=== PATIENT | male | born 1935 | race Caucasian/White ===

== ENCOUNTER → 2016-12-24 | Outpatient (CLI) | payer MEDICARE, BC ==
[~2016-12-24] MED LIST: ALLOPURINOL100 MG PO; ASPIR 8181 MG PO; AUGMENTIN 875875 MG PO; BUMETANIDE1 MG PO; CELEBREX100 MG PO; CLARITIN10 MG PO; COLACE100 MG PO; COMBIVENT1 ARO IH; COUMADIN5 M2 PO; COUMADIN7.5 M1 PO; ENALAPRIL PO; FAMOTIDINE40 MG PO; FUROSEMIDE40 MG PO; GLYBURIDE5 MG PO; HCTZ PO; INDOCIN25 MG PO; INDOCIN50 MG PO; INDOMETHACIN25 MG PO; JANUVIA100 MG PO; KLOR-CON 1010 ME1 PO; LASIX40 MG PO; LEVAQUIN750 M1 PO; LIPITOR40 MG PO; LISINOPRIL40 MG PO; LISINOPRIL5 MG PO; LOPRESSOR100 MG PO; MAG-OX 400400 MG PO; METFORMIN HCL1000 MG PO; METFORMIN500 MG PO; METOPROLOL25 MG PO; MITIGARE0.6 MG PO; NEXIUM40 MG/PACK PO; POTASSIUM CHLO10 ME1 PO; TOPROL XL25 MG PO; VICODIN 5/500 505 MG PO; WARFARIN SOD5 MG PO; XANAX0.25 MG PO; XANAX0.5 MG PO
== END | disposition home or self-care (01) ==
LOC: RAD 12:01
DX: J98.4 Other disorders of lung (principal); I10 Essential (primary) hypertension; E11.9 Type 2 diabetes mellitus without complications; Z95.1 Presence of aortocoronary bypass graft

== ENCOUNTER 2018-02-08 02:47 | Emergency (ER) | payer MEDICARE, BC ==
[~2018-02-08] VITALS: Wt 113.4 kg
[2018-02-08 03:41] LABS: HEMATOCRIT 42.9 % (42.0-52.0); HEMOGLOBIN 13.5 g/dl (14.0-18.0); MEAN CELL VOLUME 104.1 fl (80.0-94.0); MEAN CORPUSCULAR HGB 32.8 pg (27.0-31.0); MEAN CORPUSCULAR HGB CONC 31.5 g/dl (33.0-37.0); MEAN PLATELET VOLUME 12.3 fl (9.6-12.3); PLATELET COUNT AUTOMATED 174 10*3/uL (130-400); RED BLOOD COUNT 4.12 10*6/uL (4.50-5.90); RED CELL DISTRI WIDTH 15.2 % (0-14.5); WHITE BLOOD COUNT 22.4 10*3/uL (4.8-10.8)
[2018-02-08 04:00] VITALS: BP 67/44
[2018-02-08 04:00] LABS: INTERNATIONAL NORM RATIO 3.3 (2.0-3.5)
[2018-02-08 04:04] LABS: BASOPHILS 1 % (0-1); TOTAL CELLS COUNTED 100 #CELLS
[2018-02-08 04:05] LABS: PLATELET SUFFICIENCY NORMAL (NORMAL); POLYCHROMASIA SLIGHT
[2018-02-08 04:14] LABS: ALBUMIN 3.3 gm/dl (3.1-4.5); CREATININE 1.69 mg/dL (0.70-1.30); POTASSIUM 4.7 mmol/L (3.5-5.1); TOTAL PROTEIN 8.1 gm/dL (6.4-8.2)
[2018-02-08 04:22] LABS: TROPONIN I 0.017 ng/ml (<0.045)
== END 2018-02-08 06:35 | disposition short-term general hospital (02) ==
LOC: ED 02:47
PROVIDERS: Emergency Medicine
DX: K92.2 Gastrointestinal hemorrhage, unspecified (principal); J81.0 Acute pulmonary edema; J96.90 Respiratory failure, unspecified, unspecified whether with hypoxia or hypercapnia; I25.10 Atherosclerotic heart disease of native coronary artery without angina pectoris; M19.90 Unspecified osteoarthritis, unspecified site; M10.9 Gout, unspecified; I11.0 Hypertensive heart disease with heart failure; I50.9 Heart failure, unspecified; K21.9 Gastro-esophageal reflux disease without esophagitis; I48.0 Paroxysmal atrial fibrillation; Z79.02 Long term (current) use of antithrombotics/antiplatelets; Z86.718 Personal history of other venous thrombosis and embolism; Z79.899 Other long term (current) drug therapy; Z79.82 Long term (current) use of aspirin

== ENCOUNTER → 2021-05-23 | Outpatient (CLI) | payer MEDICARE, BC | END | disposition home or self-care (01) | LOC: LAB 13:09 | PROVIDERS: ATTEND Internal Medicine Hematology & Oncology | DX: N18.4 Chronic kidney disease, stage 4 (severe) (principal) ==

== ENCOUNTER → 2021-07-29 | Outpatient (CLI) | payer MEDICARE, BC ==
[2021-07-28 13:24] LABS: HEMATOCRIT 26.7 % (42.0-52.0); MEAN CORPUSCULAR HGB 29.3 pg (27.0-31.0); MEAN CORPUSCULAR HGB CONC 31.5 g/dl (33.0-37.0); MEAN PLATELET VOLUME 12.3 fl (9.6-12.3); PLATELET COUNT AUTOMATED 269 10*3/uL (130-400); RED BLOOD COUNT 2.87 10*6/uL (4.50-5.90); RED CELL DISTRI WIDTH 16.4 % (0-14.5); WHITE BLOOD COUNT 8.6 10*3/uL (4.8-10.8)
[2021-07-28 13:40] LABS: ACANTHOCYTES FEW; BURR CELLS FEW; OVALOCYTES FEW; PLATELET SUFFICIENCY NORMAL (NORMAL); SCHISTOCYTES FEW; TOTAL CELLS COUNTED 100 #CELLS
[2021-07-28 13:41] LABS: POLYCHROMASIA SLIGHT
[~2021-07-29] MED LIST changes: +ACETAMINOPHEN650 M5 PO; +ACYCLOVIR400 MG PO; +ARANESP40 MCG/1 M SQ; +BUMETANIDE0.5 MG PO; +CHOLESTYRAMINE P4 GM PO; +ELIQUIS2.5 M1 PO; +HEMADY20 MG PO; +IMODIUM A-D2 M2 PO; +JANUVIA50 MG PO; +LOMOTIL 2.5-0.1 EACH PO; +MELATONIN3 MG PO; +METOPROLOL SUCC25 M2 PO; +NATURE'S BLEND F1 MG PO; +ONDANSETRON HYDR8 MG PO; +SILVADENE,SSD C50 GM T; +VITAMIN D31250 MC1 PO
== END | disposition home or self-care (01) ==
LOC: TRNFUSION 02:55
PROVIDERS: ATTEND Internal Medicine
DX: D64.9 Anemia, unspecified (principal)

== ENCOUNTER 2021-08-11 14:30 | Inpatient (IN) | payer MEDICARE, BC ==
[2021-08-11] VITALS (11 sets, daily range): BP systolic 86–127; BP diastolic 24–105
[~2021-08-11] VITALS: Ht 182.9 cm; Wt 69.1 kg
[2021-08-11 15:24] LABS: HEMATOCRIT 26.7 % (42.0-52.0); MEAN CORPUSCULAR HGB 29.5 pg (27.0-31.0); MEAN CORPUSCULAR HGB CONC 30.7 g/dl (33.0-37.0); MEAN PLATELET VOLUME 11.9 fl (9.6-12.3); PLATELET COUNT AUTOMATED 281 10*3/uL (130-400); RED BLOOD COUNT 2.78 10*6/uL (4.50-5.90); RED CELL DISTRI WIDTH 17.7 % (0-14.5); WHITE BLOOD COUNT 12.7 10*3/uL (4.8-10.8)
[2021-08-11 15:45] LABS: INTERNATIONAL NORM RATIO 1.8 (2.0-3.5)
[2021-08-11 15:47] LABS: ALBUMIN 1.2 gm/dl (3.1-4.5); CREATININE 2.94 mg/dL (0.70-1.30); POTASSIUM 4.1 mmol/L (3.5-5.1); TOTAL PROTEIN 5.7 gm/dL (6.4-8.2)
[2021-08-11 15:48] LABS: BURR CELLS MODERATE; SCHISTOCYTES FEW; TOTAL CELLS COUNTED 100 #CELLS
[2021-08-11 15:49] LABS: ACANTHOCYTES FEW
[2021-08-11 15:50] LABS: MICROCYTOSIS MODERATE; OVALOCYTES FEW; PLATELET SUFFICIENCY NORMAL (NORMAL); POLYCHROMASIA SLIGHT
[2021-08-12 00:14] VITALS: BP 97/50
[2021-08-12 02:05] VITALS: BP 92/68
[2021-08-12 06:19] LABS: MEAN CELL VOLUME 93.9 fl (80.0-94.0); MEAN CORPUSCULAR HGB 29.2 pg (27.0-31.0); MEAN CORPUSCULAR HGB CONC 31.2 g/dl (33.0-37.0); PLATELET COUNT AUTOMATED 222 10*3/uL (130-400); RED BLOOD COUNT 2.77 10*6/uL (4.50-5.90); RED CELL DISTRI WIDTH 17.5 % (0-14.5); WHITE BLOOD COUNT 12.8 10*3/uL (4.8-10.8)
[2021-08-12 06:42] LABS: ALBUMIN 1.2 gm/dl (3.1-4.5); CREATININE 2.83 mg/dL (0.70-1.30); POTASSIUM 4.1 mmol/L (3.5-5.1)
[2021-08-12 06:44] LABS: TOTAL PROTEIN 5.7 gm/dL (6.4-8.2)
[2021-08-12 07:47] LABS: TOTAL CELLS COUNTED 100 #CELLS
[2021-08-12 07:48] LABS: BURR CELLS MODERATE; PLATELET SUFFICIENCY NORMAL (NORMAL); POLYCHROMASIA SLIGHT; SCHISTOCYTES FEW; VACUOLATION OF NEUTROPHILS SLIGHT
[2021-08-12 08:00] VITALS: BP 98/60
[2021-08-12 10:09] VITALS: BP 92/54
[2021-08-12 12:00] VITALS: BP 93/58
[2021-08-12 16:00] VITALS: BP 90/69
[2021-08-13] VITALS (15 sets, daily range): BP systolic 62–144; BP diastolic 34–87
[2021-08-13 06:26] LABS: HEMATOCRIT 24.5 % (42.0-52.0); MEAN CELL VOLUME 93.9 fl (80.0-94.0); MEAN CORPUSCULAR HGB 29.5 pg (27.0-31.0); MEAN CORPUSCULAR HGB CONC 31.4 g/dl (33.0-37.0); PLATELET COUNT AUTOMATED 264 10*3/uL (130-400); RED BLOOD COUNT 2.61 10*6/uL (4.50-5.90); RED CELL DISTRI WIDTH 17.7 % (0-14.5); WHITE BLOOD COUNT 18.6 10*3/uL (4.8-10.8)
[2021-08-13 07:11] LABS: ALBUMIN 1.2 gm/dl (3.1-4.5); POTASSIUM 4.5 mmol/L (3.5-5.1)
[2021-08-13 07:16] LABS: CREATININE 3.33 mg/dL (0.70-1.30); TOTAL PROTEIN 5.5 gm/dL (6.4-8.2)
[2021-08-13 08:16] LABS: TOTAL CELLS COUNTED 100 #CELLS
[2021-08-13 08:17] LABS: BURR CELLS MODERATE; OVALOCYTES FEW; PLATELET SUFFICIENCY NORMAL (NORMAL); POLYCHROMASIA SLIGHT; SCHISTOCYTES FEW; TOXIC GRANULATION SLIGHT; VACUOLATION OF NEUTROPHILS SLIGHT
[2021-08-14] VITALS: BP 188/58
[2021-08-14 00:40] VITALS: BP 63/29
[2021-08-14 01:41] VITALS: BP 122/98
[2021-08-14 06:13] LABS: HEMATOCRIT 27.4 % (42.0-52.0); MEAN CELL VOLUME 91.3 fl (80.0-94.0); MEAN CORPUSCULAR HGB 29.3 pg (27.0-31.0); MEAN CORPUSCULAR HGB CONC 32.1 g/dl (33.0-37.0); PLATELET COUNT AUTOMATED 228 10*3/uL (130-400); RED CELL DISTRI WIDTH 17.2 % (0-14.5); WHITE BLOOD COUNT 16.5 10*3/uL (4.8-10.8)
[2021-08-14 06:22] LABS: ALBUMIN 1.1 gm/dl (3.1-4.5); POTASSIUM 4.7 mmol/L (3.5-5.1)
[2021-08-14 06:27] LABS: CREATININE 3.5 mg/dL (0.70-1.30); TOTAL PROTEIN 5.4 gm/dL (6.4-8.2)
[2021-08-14 07:25] LABS: ACANTHOCYTES MANY; PLATELET SUFFICIENCY NORMAL (NORMAL); TOTAL CELLS COUNTED 100 #CELLS
[2021-08-14 08:00] VITALS: BP 122/98
[2021-08-14 08:59] VITALS: BP 151/101
[2021-08-14 12:00] VITALS: BP 81/50
[2021-08-14] MEDS ORDERED: BUMETANIDE1 MG PO (13:05)
[2021-08-14] MEDS ORDERED: ZITHROMAX250 MG PO (13:05)
[2021-08-14] MEDS ORDERED: CARVEDILOL3.125 MG PO (13:05)
== END 2021-08-14 17:27 | disposition home health service (06) | DRG 871 ==
LOC: ED 14:30 → EDHOLD 17:22 → 4E 17:22
PROVIDERS: Internal Medicine; Student in an Organized Health Care Education/Training Program; ADMIT Internal Medicine; ATTEND Internal Medicine
PROC: 30233N1 Transfusion of Nonautologous Red Blood Cells into Peripheral Vein, Percutaneous Approach (ICD-10-PCS; principal; 2021-08-13)
PROC: 0HBLXZZ Excision of Left Lower Leg Skin, External Approach (ICD-10-PCS; 2021-08-14)
PROC: 0HBKXZZ Excision of Right Lower Leg Skin, External Approach (ICD-10-PCS; 2021-08-14)
DX: A41.9 Sepsis, unspecified organism (principal); J96.01 Acute respiratory failure with hypoxia; N17.0 Acute kidney failure with tubular necrosis; J69.0 Pneumonitis due to inhalation of food and vomit; I16.1 Hypertensive emergency; E44.0 Moderate protein-calorie malnutrition; I13.0 Hypertensive heart and chronic kidney disease with heart failure and stage 1 through stage 4 chronic kidney disease, or unspecified chronic kidney disease; I25.810 Atherosclerosis of coronary artery bypass graft(s) without angina pectoris; C90.00 Multiple myeloma not having achieved remission; I48.0 Paroxysmal atrial fibrillation; E11.65 Type 2 diabetes mellitus with hyperglycemia; I27.20 Pulmonary hypertension, unspecified; D53.9 Nutritional anemia, unspecified; E11.22 Type 2 diabetes mellitus with diabetic chronic kidney disease; K21.9 Gastro-esophageal reflux disease without esophagitis; I08.3 Combined rheumatic disorders of mitral, aortic and tricuspid valves; M19.91 Primary osteoarthritis, unspecified site; M1A.09X0 Idiopathic chronic gout, multiple sites, without tophus (tophi); R65.20 Severe sepsis without septic shock; S80.12XA Contusion of left lower leg, initial encounter; L89.890 Pressure ulcer of other site, unstageable; S80.11XA Contusion of right lower leg, initial encounter; T50.2X5A Adverse effect of carbonic-anhydrase inhibitors, benzothiadiazides and other diuretics, initial encounter; N18.30 Chronic kidney disease, stage 3 unspecified; X58.XXXA Exposure to other specified factors, initial encounter; Y93.89 Activity, other specified; Y99.8 Other external cause status; Y92.89 Other specified places as the place of occurrence of the external cause; Z95.1 Presence of aortocoronary bypass graft; Z68.20 Body mass index [BMI] 20.0-20.9, adult; Z95.5 Presence of coronary angioplasty implant and graft; Z90.49 Acquired absence of other specified parts of digestive tract; Z83.3 Family history of diabetes mellitus; Z82.49 Family history of ischemic heart disease and other diseases of the circulatory system; Z79.899 Other long term (current) drug therapy; Z85.53 Personal history of malignant neoplasm of renal pelvis; Z86.718 Personal history of other venous thrombosis and embolism; Z79.1 Long term (current) use of non-steroidal anti-inflammatories (NSAID); I50.9 Heart failure, unspecified